=== PATIENT | female | born 1975 | race African-American/Black ===

== ENCOUNTER 2019-04-19 19:43 | Emergency (ER) | payer MEDICAID ==
[~2019-04-19] VITALS: Ht 157.5 cm; Wt 44.0 kg
[2019-04-20 00:13] VITALS: BP 152/90
== END 2019-04-19 23:46 | disposition left against medical advice (07) ==
LOC: ER 19:43
DX: Z53.21 Procedure and treatment not carried out due to patient leaving prior to being seen by health care provider (principal)